=== PATIENT | male | born 1990 | race Caucasian/White ===

== ENCOUNTER 2017-09-09 11:25 | Emergency (ER) | payer SELFPAY ==
[2017-09-09 11:25] VITALS: BMI 28.0
[2017-09-09] MEDS ORDERED: Oxycodone/Acetaminophen 5/325 mg Tab PO STA (12:11)
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
--- NOTE | 2017-09-09 13:09 | RAD ---
Date of service: 09/09/2017 PROCEDURE: Left Knee and patella Radiographs. HISTORY: Pain. COMPARISON: None. FINDINGS: BONES: Normal. No fracture. JOINTS: Normal. No osteoarthritis. JOINT EFFUSION: None. OTHER FINDINGS: None. IMPRESSION: Negative study
[2017-09-09 14:13] VITALS: RESP 18; O2SAT 100
[2017-09-09 14:14] VITALS: BP 128/85; PULSE 87; TEMP 98.7
--- NOTE | 2017-09-10 09:55 | US ---
PROCEDURE: Left lower extremity venous US HISTORY: Leg pain and swelling. Evaluate for DVT. PHYSICIAN(S): Barron Moser MD. TECHNIQUE: Duplex sonography and color-flow Doppler with graded compression were used to evaluate the deep venous system of the left lower extremity. FINDINGS: The visualized deep venous system of the left lower extremity is sonographically normal and compressible. Normal wave forms and augmentation are seen. There is no sonographic evidence for deep venous thrombosis in the visualized segments of the left lower extremity. IMPRESSION: 1. No sonographic evidence for deep venous thrombosis in the visualized segments of the left lower extremity.
== END 2017-09-09 14:13 | disposition home or self-care (01) ==
LOC: ED 11:25
DX: M25.562 Pain in left knee (principal); S89.92XA Unspecified injury of left lower leg, initial encounter; V49.9XXA Car occupant (driver) (passenger) injured in unspecified traffic accident, initial encounter